=== PATIENT | female | born 1950 | race African-American/Black ===

== ENCOUNTER 2020-03-28 11:56 | Inpatient (IN) | payer MEDICARE ==
[~2020-03-28] VITALS: Ht 172.7 cm; Wt 72.1 kg
[2020-03-28 12:01] VITALS: BP 161/111
[2020-03-28 13:01] LABS: ABSOLUTE NEUTROPHILS 6.6 thou/uL (1.4-8.2); BASOPHILS 0.4 % (0.0-2.0); EOSINOPHILS 0.3 % (0.0-3.0); HEMATOCRIT 49.4 % (37.0-47.0); LYMPHOCYTES 16.7 % (24.0-44.0); MCH 27.7 pg (26.0-34.0); MCHC 32.4 g/dL (28.0-37.0); MCV 85.5 fL (80.0-100.0); MONOCYTES 4.7 % (1.0-8.0); PLATELET COUNT 252 thou/uL (150-400); POLYS 77.9 % (36.0-66.0); RBC 5.78 mil/uL (4.20-5.00); RDW 15.2 % (10.5-14.5); WBC 8.4 thou/uL (4.0-11.0)
[2020-03-28 13:08] LABS: CALCIUM 9.1 mg/dL (8.5-10.1); CREATININE 0.9 mg/dL (0.6-1.0); POTASSIUM 3.3 mmol/L (3.5-5.1)
[2020-03-28 13:14] LABS: ALBUMIN 3.9 g/dL (3.4-5.0); TOTAL BILIRUBIN 0.4 mg/dL (0.2-1.0); TOTAL PROTEIN 8.1 g/dL (6.4-8.2)
[2020-03-28] MEDS ORDERED: PRAVACHOL40 MG PO (14:35)
[2020-03-28] MEDS ORDERED: AMLODIPINE BESY10 MG PO (14:36)
--- NOTE | 2020-03-28 15:39 | EKG ---
[facility] [place] [address] ELECTROCARDIOGRAM REPORT Name: PAUL VIVEROS Room #: REG [facility]#: [id number] Admission: 03/28/20 Attend Phys: Discharge: Date of : 52 Report #: [id number] THIS REPORT FOR: cc: June Frazier K. Steven DO Couchonnal,Justo Thomas MD ~ THIS REPORT FOR: //name// [facility] ED Test Date: 2020-03-28 Test Time: 13:05:15 Pat Name: PAUL VIVEROS Department: Room: Gender: F Photograph Retoucher: : 1950 Requested By: Mitali Bacon Order Number: [id number] MD: Justo Moran Measurements Intervals [place] Rate: 95 P: 48 [place]: 132 QRS: 81 QRSD: 77 T: 52 QT: 356 QTc: 448 Interpretive Statements Sinus rhythm Multiple ventricular premature complexes Probable left atrial enlargement Borderline right axis deviation No previous ECG available for comparison Electronically Signed On 03-28-2020 15:39:22 CDT by Justo Moran [email or web address] <ELECTRONICALLY SIGNED> By: Justo Moran MD 03/28/20 1539 [id number] Justo Moran MD /ARACELY
[2020-03-28 17:19] LABS: BE(vivo) -1.4 mmol/L (-2 to +3); HCO3 22.1 mmol/L (22.0-26.0); PCO2 34.2 mmHg (35.0-45.0); PO2 62.3 mmHg (80.0-100.0); pH 7.428 (7.360-7.450); sO2 92.6 % (92.0-98.0)
[2020-03-28 17:56] LABS: TSH 0.566 uIU/mL (0.358-3.740)
[2020-03-28 21:29] VITALS: BP 127/97
[2020-03-28 21:44] VITALS: BP 116/84
[2020-03-28 22:00] VITALS: BP 125/82
[2020-03-29] VITALS (7 sets, daily range): BP systolic 106–136; BP diastolic 54–86
--- NOTE | 2020-03-29 04:00 | NUR ---
RECIEVED PT VIA GURNEY FROM ED , PT NOTED WITH PRODUCTIVE COUGH, DENIES PAIN, SAT 97 % ON RA. DATA BASE COMPLETED AND ASSESSMENT DONE. MEDICATION GIVEN AND RESP TREATMENT GIVEN. SPRAYER OPERATOR SHOWS NSR AND INTERMITTMENT BIG PVCS . PT RESTING WELL THROUGHOUT HOURLY ROUNDS.
--- NOTE | 2020-03-29 11:42 | NUR ---
08:15-AM ASSESSMENT AT THIS TIME COMPLETED. PT. IS UP IN BED WATCHING TV AT THIS TIME A0X4. SHE CONTINUES TO C/O CONSTIPATION TODAY, ENCOURAGED FLUIDS AND MOVING AROUND IN HER ROOM TODAY MUCH POSSIBLE. PT. IS ST NOW, NO BIGEMNY OBSERVED THUS FAR FOR MY SHIFT.
--- NOTE | 2020-03-29 11:44 | NUR ---
PT. C/O ANXIETY WILL GIVE XANAX FOR SUCH. ALSO COVID RESULTS ARE BACK AND ARE NEGATIVE, WILL SHARE WITH PATIENT THE RESULTS SHE HAS INQUIRED MANY TIMES ABOUT SUCH. SHE SHARED WITH ME HER MOTHER RECENTLY FROM [place] AND SHE HAS "GONE [place] EVER SINCE". DENIES BEING AROUND ANYONE SICK RECENTLY NOR ANYONE WITH COVID, HER DAUGHTER'S HAVE BEEN BRINGING HER GROCERIES AND SHE HAS BEEN SELF ISOLATING.
--- NOTE | 2020-03-29 15:00 | NUR ---
INITIAL ASSESSMENT: Received consult. SW reviewed chart and spoke with nursing and attending physician. Pt was admitted from home due to COPD exacerbation. Pt placed in Enhanced Isolation to r/o COVID-19. Pt's test is negative. Pt is afebrile and not requiring O2. Pt is on IV steroids and IV abx. Psych consult ordered to evaluate pt for anxiety/hallucinations. JUAN MIGUEL placed call into pt's room no answer. SW left voice message on pt's cell phone. Per chart, pt lives at home. PT/OT/ST ordered to evaluate pt for discharge needs. Pt's PCP is Dr. Preet Frazier. SW is following to assist as needed with discharge planning.
--- NOTE | 2020-03-29 16:11 | NUR ---
PT. TO TRANSFER TO FLOOR IS "VERY HAPPY ABOU THIS". SHE SAID SHE FEELS BETTER NOW THAT SHE HAS HAD ANXIETY MEDICATION AND ATE TODAY, SHE STILL PRETTY TIRED OVERALL". WILL CALL REPORT SOON A BED IS ASSIGNED TO US.
--- NOTE | 2020-03-29 22:00 | NUR ---
Patient progressing towards outcome goals. Oxygenation optimal on roomair. Short of air with activity. COVID negative. Orders to transfer out of unit to room 200. Report given to Serina SIMMONS.
[2020-03-30 00:06] LABS: GLYCOHEMOGLOBIN (HGB A1C) 6.2 % (4.8-5.6)
[2020-03-30 04:45] VITALS: BP 121/72
--- NOTE | 2020-03-30 05:26 | NUR ---
ASSESSMENT DOCUMENTED.PT TRANSFERRED FROM [facility].COVID NEGATIVE.PT IS A/OX3.VSS.ON RA W/O RESP DISTRESS.HAS PRODUCTIVE COUGH WITH WHITE PHLEGM.SINUS RHYTHM ON MONITOR.C/O ANXIETY THAT WAS CONTROLLED WITH XANAX.PT THINKS HIS ANXIETY IS FROM STOPPING SMOKING CIGARETTES.HAS NICOTINE PATCH.POSSIBLE DISCHARGE TODAY OR TOMORROW.WILL CONT TO MONITOR PER POC.
[2020-03-30 05:43] LABS: HEMATOCRIT 44.3 % (37.0-47.0); HEMOGLOBIN 14.1 gm/dL (12.0-15.0); MCH 27.5 pg (26.0-34.0); MCHC 31.9 g/dL (28.0-37.0); MCV 86.4 fL (80.0-100.0); RBC 5.13 mil/uL (4.20-5.00); RDW 15.2 % (10.5-14.5); WBC 17.6 thou/uL (4.0-11.0)
[2020-03-30 05:49] LABS: ANION GAP 11 mmol/L (7-16); BUN 22 mg/dL (7-18); CALCIUM 8.5 mg/dL (8.5-10.1); CHLORIDE 107 mmol/L (98-107); CHOLESTEROL 179 mg/dL (<200); CO2 23 mmol/L (21-32); GLUCOSE 156 mg/dL (74-106); HDL CHOLESTEROL 54 mg/dL (>40); LDL CHOLESTEROL 114 mg/dL (<100); MAGNESIUM 2.2 mg/dL (1.8-2.4); POTASSIUM 4.3 mmol/L (3.5-5.1); SODIUM 141 mmol/L (136-145); TC:HDL 3.3 Ratio (Not establshd); TRIGLYCERIDE 56 mg/dL (<150); VLDL 11 mg/dL (<40)
[2020-03-30 06:23] LABS: SERUM ASSESSMENT Clear
--- NOTE | 2020-03-30 10:16 | NUR ---
spoke with patient tenative dc today. Patient discussed her anxiety with kevin. She reports anxious. Discussed dc home and possible HH care. patient receptive. No preference for HH agency. referral to [facility].
[2020-03-30 10:17] VITALS: BP 107/67
[2020-03-30] MEDS ORDERED: ALPRAZOLAM 0.0.25 M1 PO (12:55)
[2020-03-30] MEDS ORDERED: PREDNISONE 5 MG5 MG PO (12:55)
[2020-03-30] MEDS ORDERED: NICOTINE1 EAC2 TRANSDERM (12:55)
[2020-03-30] MEDS ORDERED: IPRAT-ALBUT 0.5-3 ML INH (12:55)
[2020-03-30] MEDS ORDERED: LEVAQUIN 750 M750 MG PO (12:55)
--- NOTE | 2020-03-30 13:54 | NUR ---
REFERRAL FAXED TO [facility] SPOKE WITH LISETH IN INTAKE THEY CAN ACCEPT. PT DISCHARGING TODAY FAXED DC ORDERS/SUMMARY RECEIVED CONFIRMATION AND THEY WILL NOTIFY PT TIME OF VISITS.
[2020-03-31 01:06] LABS: GLYCOHEMOGLOBIN (HGB A1C) 6.2 % (4.8-5.6)
== END 2020-03-30 18:01 | disposition home health service (06) | DRG 871 ==
LOC: ER 11:56 → EROBS 16:40 → 2N 16:40 → 3W 16:40 → 2N 03-29 22:53
PROVIDERS: Nurse Practitioner; Physician Assistant; ADMIT Internal Medicine; ATTEND Internal Medicine
DX: A41.9 Sepsis, unspecified organism (principal); J18.9 Pneumonia, unspecified organism; J96.01 Acute respiratory failure with hypoxia; J44.0 Chronic obstructive pulmonary disease with (acute) lower respiratory infection; J44.1 Chronic obstructive pulmonary disease with (acute) exacerbation; I16.0 Hypertensive urgency; R91.1 Solitary pulmonary nodule; F17.210 Nicotine dependence, cigarettes, uncomplicated; I10 Essential (primary) hypertension; F41.1 Generalized anxiety disorder; E87.6 Hypokalemia; E78.5 Hyperlipidemia, unspecified; Z20.828 Contact with and (suspected) exposure to other viral communicable diseases; Z71.6 Tobacco abuse counseling; Z88.2 Allergy status to sulfonamides
CPT/HCPCS: 10081; 10879

== ENCOUNTER 2020-04-26 17:37 | Emergency (ER) | payer MEDICARE ==
[~2020-04-26] VITALS: Ht 172.7 cm; Wt 59.0 kg
[~2020-04-26 17:37] MED LIST: ALPRAZOLAM 0.0.25 M1 PO; AMLODIPINE BESY10 MG PO; IPRAT-ALBUT 0.5-3 ML INH; LEVAQUIN 750 M750 MG PO; NICOTINE1 EAC2 TRANSDERM; PRAVACHOL40 MG PO; PREDNISONE 5 MG5 MG PO
[2020-04-26 18:05] LABS: HEMATOCRIT 50.3 % (37.0-47.0); HEMOGLOBIN 16.3 gm/dL (12.0-15.0); MCHC 32.5 g/dL (28.0-37.0); MCV 86.3 fL (80.0-100.0); PLATELET COUNT 272 thou/uL (150-400); RBC 5.83 mil/uL (4.20-5.00); RDW 15.4 % (10.5-14.5); WBC 5.7 thou/uL (4.0-11.0)
[2020-04-26 18:12] LABS: ANION GAP 12 mmol/L (7-16); BUN 17 mg/dL (7-18); CALCIUM 8.9 mg/dL (8.5-10.1); CHLORIDE 100 mmol/L (98-107); CO2 25 mmol/L (21-32); CREATININE 1.1 mg/dL (0.6-1.0); GLUCOSE 125 mg/dL (74-106); SODIUM 137 mmol/L (136-145)
[2020-04-26 18:23] LABS: ALBUMIN 3.8 g/dL (3.4-5.0); SGOT 25 U/L (15-37); SGPT 37 U/L (30-65); TOTAL BILIRUBIN 0.4 mg/dL (0.2-1.0); TOTAL PROTEIN 8.4 g/dL (6.4-8.2); TROPONIN-I <0.06 ng/mL (<0.06)
[2020-04-26 18:35] LABS: ABSOLUTE NEUTROPHILS 3.9 thou/uL (1.4-8.2); PLATELET ESTIMATE NORMAL
[2020-04-26] MEDS ORDERED: XANAX 0.5 MG0.5 MG PO (22:24)
[2020-04-26 22:35] VITALS: BP 131/88
--- NOTE | 2020-04-27 08:38 | EKG ---
[facility] [place] [address] ELECTROCARDIOGRAM REPORT Name: BRUNOPAUL FERREIRA Room #: DEP [facility]#: [id number] Admission: 04/26/20 Attend Phys: Discharge: 04/26/20 Date of : 52 Report #: [id number] THIS REPORT FOR: cc: June Frazier K. Steven DO Lundgren, Craig H. 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: SHAILA : 1950 Requested By: Joni Gray Order Number: [id number] MD: Jamar Winston Measurements Intervals [place] Rate: 121 P: 59 [place]: 115 QRS: 86 QRSD: 74 T: 29 QT: 308 QTc: 437 Interpretive Statements Sinus tachycardia Nonspecific ST and T wave abnormality Compared to ECG 03/28/2020 13:05:15 Heart rate has increased Ventricular premature complex(es) no longer present Electronically Signed On 04-27-2020 8:38:08 CDT by Jamar Winston [email or web address] <ELECTRONICALLY SIGNED> By: Jamar Winston MD, [facility] 04/27/20 0838 [id number] Jamar Winston MD, [facility] /EPI
== END 2020-04-26 22:34 | disposition home or self-care (01) ==
LOC: ER 17:37
PROVIDERS: Emergency Medicine
DX: R07.89 Other chest pain (principal); R06.02 Shortness of breath; R00.0 Tachycardia, unspecified; R63.0 Anorexia; J44.9 Chronic obstructive pulmonary disease, unspecified; I10 Essential (primary) hypertension; F41.9 Anxiety disorder, unspecified; Z79.2 Long term (current) use of antibiotics; Z79.899 Other long term (current) drug therapy; Z88.2 Allergy status to sulfonamides; Z87.891 Personal history of nicotine dependence

== ENCOUNTER 2020-05-01 21:04 | Inpatient (IN) | payer MEDICARE ==
[~2020-05-01] VITALS: Ht 172.7 cm; Wt 66.2 kg
[~2020-05-01 21:04] MED LIST changes: +XANAX 0.5 MG0.5 MG PO
[2020-05-01 21:05] VITALS: BP 110/70
[2020-05-01 22:18] LABS: BASOPHILS 0.5 % (0.0-2.0); HEMATOCRIT 36.7 % (37.0-47.0); HEMOGLOBIN 11.8 gm/dL (12.0-15.0); MCH 27.9 pg (26.0-34.0); MCHC 32.2 g/dL (28.0-37.0); MCV 86.6 fL (80.0-100.0); MONOCYTES 11.4 % (1.0-8.0); PLATELET COUNT 232 thou/uL (150-400); POLYS 67.1 % (36.0-66.0); RBC 4.24 mil/uL (4.20-5.00); RDW 15.4 % (10.5-14.5)
[2020-05-01 22:21] LABS: URINE BILIRUBIN NEGATIVE (Negative); URINE BLOOD NEGATIVE (Negative); URINE CLARITY CLEAR; URINE COLOR YELLOW; URINE GLUCOSE-RANDOM* NEGATIVE (Negative); URINE KETONES NEGATIVE (Negative); URINE LEUKOCYTES-REFLEX NEGATIVE (Negative); URINE NITRITE-REFLEX NEGATIVE (Negative); URINE PROTEIN (DIPSTICK) TRACE (Negative); URINE UROBILINOGEN 0.2 E.U./dl (0.2-1.0)
[2020-05-01 22:27] LABS: ANION GAP 10 mmol/L (7-16); BUN 13 mg/dL (7-18); CALCIUM 6.1 mg/dL (8.5-10.1); CHLORIDE 108 mmol/L (98-107); CO2 22 mmol/L (21-32); CREATININE 0.6 mg/dL (0.6-1.0); GLUCOSE 84 mg/dL (74-106); POTASSIUM 3.4 mmol/L (3.5-5.1); SODIUM 140 mmol/L (136-145)
[2020-05-01 22:37] LABS: ALBUMIN 2.1 g/dL (3.4-5.0); MAGNESIUM 1.7 mg/dL (1.8-2.4); SGOT 43 U/L (15-37); SGPT 27 U/L (30-65); TOTAL BILIRUBIN 0.5 mg/dL (0.2-1.0); TOTAL PROTEIN 5.6 g/dL (6.4-8.2); TROPONIN-I <0.06 ng/mL (<0.06)
[2020-05-01 22:40] LABS: BE(vivo) -1.3 mmol/L (-2 to +3); HCO3 22.2 mmol/L (22.0-26.0); PCO2 33.6 mmHg (35.0-45.0); pH 7.438 (7.360-7.450); sO2 94.4 % (92.0-98.0)
--- NOTE | 2020-05-01 23:18 | NUR ---
TALKED WITH DAUGHTER MAGEN AND GAVE HER AN UPDATE ON PT. PT GAVE PERMISSION TO TALKED WITH DAUGHTER
[2020-05-02 05:46] LABS: CALCIUM 7.1 mg/dL (8.5-10.1); CREATININE 0.7 mg/dL (0.6-1.0); POTASSIUM 3.6 mmol/L (3.5-5.1)
--- NOTE | 2020-05-02 08:31 | EKG ---
[facility] [place] [address] ELECTROCARDIOGRAM REPORT Name: PAUL VIVEROS Room #: 170-1 ADM IN M.R.#: [id number] Admission: 05/01/20 Attend Phys: Jean Claude Fox MD Discharge: Date of : 52 Report #: [id number] THIS REPORT FOR: cc: June Frazier K. Steven DO Lundgren, Craig H. MD [facility] ~ THIS REPORT FOR: //name// [facility] ED Test Date: 2020-05-01 Test Time: 21:52:20 Pat Name: PAUL VIVEROS Department: Room: [facility] Gender: F Annealing Torch Operator: LUDWIN : 1950 Requested By: Paul Evans Order Number: [id number] MD: Jamar Winston Measurements Intervals [place] Rate: 101 P: 25 [place]: 121 QRS: 83 QRSD: 80 T: 30 QT: 353 QTc: 458 Interpretive Statements Sinus tachycardia Nonspecific T wave abnormality Compared to ECG 04/26/2020 17:41:46 No gross differences Electronically Signed On 05-02-2020 8:31:22 CDT by Jamar Winston [email or web address] <ELECTRONICALLY SIGNED> By: Jamar Winston MD, [facility] 05/02/20 0831 51 51 Jamar Winston MD, [facility] /EPI
[2020-05-02 10:10] VITALS: BP 107/72
[2020-05-02 11:06] VITALS: BP 100/68
[2020-05-02 11:40] VITALS: BP 111/81
[2020-05-02 16:34] VITALS: BP 102/71
--- NOTE | 2020-05-02 16:35 | NUR ---
PT ADMITTED FROM HOME. REPORTS SHE HAS NOT FELT WELL X 2 WEEKS...SOA...ON RA AT HOME BUT CURRENTLY ON 4.5L WITH 93# SATS..
[2020-05-02 21:42] VITALS: BP 98/51
[2020-05-02 23:59] VITALS: BP 128/75
[2020-05-03 06:29] VITALS: BP 126/70
[2020-05-03 07:19] VITALS: BP 118/80
[2020-05-03 10:57] VITALS: BP 119/81
--- NOTE | 2020-05-03 15:08 | NUR ---
INITIAL ASSESSMENT: Received consult. JUAN MIGUEL reviewed chart and spoke with nursing and attending physician. Pt was admitted from home due to COPD/Hypoxia. Pt placed in Enhanced Isolation due to COVID-19. Pt's test is positive. Pt is afebrile and on 5L of O2. SW spoke with pt via phone. Introduced role of SW. Pt is alert/orientated x 4. Pt reports she lives at home alone. Prior to admission, pt was independent with ADLs. Pt does not use any DME for ambulation. 5 steps to enter the home. No steps inside. Pt reports she is currently on service with [facility] . Pt PCP is Dr. Preet Frazier. Pt's dtrs are supportive and involved in her care. JUAN MIGUEL spoke with intake at to notify of pt's admission and COVID positive status. investigator fraud to fax clinical info/COVID test results to for review. Therapy evals requested. JUAN MIGUEL is following to assist as needed with discharge planning.
[2020-05-03 16:06] VITALS: BP 119/71
[2020-05-03 19:18] VITALS: BP 127/80
[2020-05-03 22:20] VITALS: BP 114/70
[2020-05-04 03:55] VITALS: BP 116/76
[2020-05-04 06:17] LABS: ABSOLUTE NEUTROPHILS 11.2 thou/uL (1.4-8.2); BASOPHILS 0.1 % (0.0-2.0); HEMOGLOBIN 11.6 gm/dL (12.0-15.0); LYMPHOCYTES 5.5 % (24.0-44.0); MCH 27.6 pg (26.0-34.0); MCHC 32.3 g/dL (28.0-37.0); MCV 85.5 fL (80.0-100.0); MONOCYTES 5.1 % (1.0-8.0); POLYS 89.3 % (36.0-66.0); RBC 4.21 mil/uL (4.20-5.00); RDW 14.9 % (10.5-14.5); WBC 12.5 thou/uL (4.0-11.0)
[2020-05-04 06:25] LABS: PLATELET COUNT 345 thou/uL (150-400)
[2020-05-04 06:31] LABS: ALBUMIN 2.4 g/dL (3.4-5.0); DIRECT BILIRUBIN < 0.1 mg/dL (<0.1-0.2); SGOT 36 U/L (15-37); SGPT 48 U/L (30-65); TOTAL BILIRUBIN 0.5 mg/dL (0.2-1.0); TOTAL PROTEIN 6.2 g/dL (6.4-8.2)
[2020-05-04 07:26] VITALS: BP 125/70
[2020-05-04 14:58] VITALS: BP 117/71
--- NOTE | 2020-05-04 16:14 | NUR ---
SW reviewed chart and spoke with nursing and attending physician. Pt is in Enhanced Isolation duye to COVID-19. Pt is afebrile and requiring 6L of O@. Pt is on IV abx and IV steroids. Pt had plasma yesterday and is completing course of Remdesivir. No weekend discharge planned. Will need therapy evals. Pt was not on O2 prior to admission. JUAN MIGUEL is following to assist as needed with discharge planning.
--- NOTE | 2020-05-04 18:39 | NUR ---
PATIENT CONT TO IMPROVE AT THIS TIME. SHE DOES NOT SEEM TO BE IN PAIN OR DISTRESS AT THIS TIME. EARLIER SHE STATED SHE HAD ANXIETY AND WILL NEED XANAX WHICH WAS ADMINISTERED. SHE IS ALERT ORIENTED X4. UP TO BEDSIDE COMMODE. WILL CONT WITH PLAN OF CARE.
[2020-05-04 19:55] VITALS: BP 125/86
[2020-05-05 03:44] VITALS: BP 130/79
--- NOTE | 2020-05-05 05:38 | NUR ---
continues on oxygen. patient reports that she is comfortable with her breathing. heart rate more under controlled this morning in the 70's.
[2020-05-05 06:08] LABS: ALBUMIN 2.4 g/dL (3.4-5.0); DIRECT BILIRUBIN 0.2 mg/dL (<0.1-0.2); TOTAL BILIRUBIN 0.6 mg/dL (0.2-1.0); TOTAL PROTEIN 5.8 g/dL (6.4-8.2)
[2020-05-05 07:59] VITALS: BP 117/113
[2020-05-05 11:04] VITALS: BP 119/71
[2020-05-05 14:53] VITALS: BP 128/78
[2020-05-05 20:17] VITALS: BP 127/80
[2020-05-05 23:29] VITALS: BP 123/66
--- NOTE | 2020-05-06 03:47 | NUR ---
Patient making slow progress towards outcome goals. Oxygenation optimal with 6L/NC sats mid 90's. Patient has a lot of anxiety, states she feels like she is not getting enough air althought sats are normal. She quit smoking recently, was smoking 2 packs/day. One time order for Vistaril given with some relief. Order also received for Nicotine patch. Vital signs and rhythm stable. Up to BSC independently. Gait steady.
[2020-05-06 04:37] VITALS: BP 129/76
[2020-05-06 06:18] LABS: ALBUMIN 2.4 g/dL (3.4-5.0); DIRECT BILIRUBIN 0.1 mg/dL (<0.1-0.2); TOTAL BILIRUBIN 0.7 mg/dL (0.2-1.0); TOTAL PROTEIN 6.2 g/dL (6.4-8.2)
[2020-05-06 07:00] VITALS: BP 127/81
[2020-05-06 10:31] LABS: HEMATOCRIT 40.8 % (37.0-47.0); HEMOGLOBIN 13.3 gm/dL (12.0-15.0); MCH 28.1 pg (26.0-34.0); MCHC 32.6 g/dL (28.0-37.0); MCV 86.1 fL (80.0-100.0); RBC 4.74 mil/uL (4.20-5.00); WBC 14.6 thou/uL (4.0-11.0)
[2020-05-06 10:44] LABS: ALBUMIN 2.5 g/dL (3.4-5.0); CALCIUM 7.4 mg/dL (8.5-10.1); CREATININE 0.8 mg/dL (0.6-1.0); POTASSIUM 3.6 mmol/L (3.5-5.1); TOTAL BILIRUBIN 0.7 mg/dL (0.2-1.0); TOTAL PROTEIN 5.9 g/dL (6.4-8.2)
--- NOTE | 2020-05-06 18:39 | NUR ---
ASSUMED PATIENT CARE AT 0700. ANXIOUS. TITRATED TO 5L. SOB WITH EXERTION. PROGRESSING TOWARDS POC GOALS.
[2020-05-06 20:29] VITALS: BP 110/66
--- NOTE | 2020-05-07 04:12 | NUR ---
Patient making slow progress towards outcome goals. Vital signs and rhythm stable. Denies pain. Encouraged to take Xanax with some relief. Oxygenation optimal with 5L/NC, still with periods of shortness of breath with relief after breathing treatment. Up to BSC without difficulty. Calls out appropriately for needs.
[2020-05-07 04:24] VITALS: BP 136/67
[2020-05-07 08:11] VITALS: BP 134/86
[2020-05-07 11:18] VITALS: BP 111/80
--- NOTE | 2020-05-07 14:53 | NUR ---
JUAN MIGUEL reviewed chart and spoke with nursing and attending physician. Pt is in Enhanced Isolation due to COVID-19. Pt is afebrile and requiring 5L of O2. Pt is on IV abx and IV steroids. Pt finished her course of Remdesivir yesterday. JUAN MIGUEL requested therapy evals to be ordered. Pt was admitted from home and was on service with [facility] . Pt did not require O2 prior to admission. JUAN MIGUEL placed call to pt's room. No answer. JUAN MIGUEL is following to assist as needed with discharge planning.
[2020-05-07 16:17] VITALS: BP 108/62
--- NOTE | 2020-05-07 18:38 | NUR ---
PT IS A&OX3, PT IS CONTINUING IV ABX AND O2 5L/MIN/NC, PT'S VS ARE STABLE, BUT PT HAS SOB WITH ACTIVITIES, PT IS ON ISOLATION FOR POSITIVE COVID.
[2020-05-07 20:02] VITALS: BP 115/74
--- NOTE | 2020-05-07 22:08 | NUR ---
PT RESTING IN BED WATCHING TV AND TALKING WITH STAFF. PT SOB WITH EXERTION. PT HAS BSC AND CALLS FOR ASSIST. IV INTACT. OXYGEN NC INTACT. PT REQUESTED PRN FOR ANXIETY WHEN IT IS DUE. PT COMPLIANT WITH MEDS. PT REQUESTED INFORMATION RE NAME AND PURPOSE OF EACH MEDICATION. PT PROVIDED SNACK. COUGH LUNGS WITH WHEEZES.
[2020-05-08 05:05] VITALS: BP 125/74
--- NOTE | 2020-05-08 06:26 | NUR ---
PT REPORTED POOR SLEEP BUT WAS OBSERVED TO BE ASLEEP THROUGHOUT THE NIGHT.
[2020-05-08 07:41] VITALS: BP 117/68
--- NOTE | 2020-05-08 11:14 | NUR ---
Nutrition: pt seen for LOS. Admitted with COVID 19. Attempted to phone pt but no answer. Intake records show pt eating 60-75% of meals on heart healthy diet. No recent weight loss per [facility]. 05/07 BM. Mg 1.7 low on admit, may consider re-checking. A1C 6.2 in March with no hx of DM. Does have hx of COPD and steroid use however. No accuchecks currently being taken. Consider add carb controlled diet. Consider low nutrition risk otherwise.
[2020-05-08 14:59] VITALS: BP 123/77
--- NOTE | 2020-05-08 15:10 | NUR ---
JUAN MIGUEL reviewed chart and spoke with nursing and attending physician. Pt is in Enhanced Isolation due to COVID-19. Pt is afebrile and on 5L of O2. Pt is on IV abx and IV steroids. SW requested therapy evals to assist with recommendtions for discharge. Pt was not on O2 prior to admission. JUAN MIGUEL placed call to pt's room. No answer. JUAN MIGUEL is following to assist as needed with discharge planning.
--- NOTE | 2020-05-08 18:37 | NUR ---
assumed patient care at 0700. ambulated in room. titrated 02 to 3l tolerated well. progressing towards poc golas.
[2020-05-08 20:30] VITALS: BP 113/74
--- NOTE | 2020-05-09 02:38 | NUR ---
PROGRESS PT A/O X4, UP AD ERENDIRA TO BSC, ABLE TO AMBULATE TO BATHROOM BUT CONCERNED THAT HER O2 SATS DROPPED TO 88 ON ROOM AIR. HAS PULSE OXIMETER AT BEDSIDE AND MONITORS SATS NEEDED. DOESN'T APPEAR TO HAVE ANY SOA RESPIRATIONS QUIET AND EAST LEFT LUNG BASE WITH SOME CRACKLES AND WHEEZES, RIGHT LUNG CLEAR IN ALL LOBES EXCEPT SLIGHT WHEEZING NOTED IN BASE THAT CLEARS WITH COUGH. TAKING RT TREATMENTS, GUAFENSIN HELPING TO EXPECTORATE SECRETIONS. ANXIOUS ABOUT LEVEL OF OXYGEN PER DAY SHIFT TITRATED TO 3 LITERS SATS AT 94 TO 95%. tELE INTACT READING SR WITH RATES IN THE 50'S TO 70'S.
[2020-05-09 04:33] VITALS: BP 104/60
[2020-05-09 09:00] VITALS: BP 115/82
--- NOTE | 2020-05-09 10:50 | NUR ---
JUAN MIGUEL reviewed chart and spoke with nursing and attending physician. Pt is in Enhanced Isolation due to COVID-19. Pt is afebrile and on 3L of O2. Pt is on IV steroids. Therapy ordered to evaluate pt. JUAN MIGUEL placed call into pt's room to discuss discharge plan. No answer. JUAN MIGUEL spoke with pt's dtr, Kristen, via phone to discuss discharge plan: post-acute placement v. Home with HH. Pt's dtr states pt has expressed concern with going home, as she is still having trouble breathing. SW discussed that home O2 can be arranged at home v. placement in a SNF for rehab and medical mgmt. JUAN MIGUEL reviewed in-network SNF list with pt's dtr. [facility] is most likely the only facility accepting new COVID positive pts at this time. JUAN MIGUEL checked with [facility], who is not accepting new COVID units. SW is awaiting call back for [facility] to confirm. Awaiting therapy evals. Pt's dtrs will discuss plan with pt. Pt's family thought pt had a repeat COVID test on 05/06. JUAN MIGUEL discussed with attending physician and requested repeat COVID test. JUAN MGIUEL is following to assist as needed with discharge planning.
[2020-05-09 12:00] VITALS: BP 119/78
[2020-05-09 16:00] VITALS: BP 115/70
--- NOTE | 2020-05-09 19:09 | NUR ---
PATIENT IS PLEASANT WITH CARE. DOES NOT SEEM TO BE IN PAIN OR DISTRESS.DENIES PAIN. CONT TO PREPARE TO GO HOME TOMORROW.
--- NOTE | 2020-05-09 20:01 | NUR ---
Pt changed back to nebulizer treatments she prefers nebulizer over inhaler, 89% on 3L increased her to 4L 94%, lung sounds wheezes.
[2020-05-09 20:59] VITALS: BP 97/74
--- NOTE | 2020-05-10 03:27 | NUR ---
VSS-AFEBRILE. SIGNIFICANT SHORTNESS OF AIR WITH EXERTION, EVEN TALKING. REMAINS ON 4LNC, DOES NOT WEAR ANY O2 AT HOME. CONGESTED COUGH, MODERATE AMOUNTS OF THICK, BEIGE SPUTUM. ALERT AND ORIENTED X 4, LUNGS COURSE AND TIGHT THROUGH ALL LUNG DE LEON BILATERALLY, BREATHING TREATMENTS GIVE PARTIAL RELIEF OF TIGHTNESS. OOB AD ERENDIRA TO USE BSC, NO DIFFICULTY VOIDING. NO BM THIS SHIFT. C/O GENERALIZED ALL OVER BODY ACHES, DECLINED ANY PAIN MEDICATION. CALLS APPROPRIATELY FOR ANY NEEDED ASSISTANCE.
[2020-05-10 05:21] VITALS: BP 114/77
[2020-05-10 08:23] VITALS: BP 96/63
[2020-05-10 11:28] VITALS: BP 102/72
--- NOTE | 2020-05-10 12:59 | NUR ---
JUAN MIGUEL reviewed chart and spoke with nursing and attending physician. Pt is in Enhanced Isolation due to COVID-19. Pt's repeat test ordered yesterday is pending. Pt is afebrile and on 4L of O2. Pt is on IV steroids. Discharge home with [facility] is anticipated for tomorrow. JUAN MIGUEL notified Janiya quezada at . JUAN MIGUEL also notified [facility] liaison. Pt will need rest/exercise oximetry ordered prior to discharge to determine pt's home O2 needs. JUAN MIGUEL notified attending physician. JUAN MIGUEL placed call to pt's room. No answer. JUAN MIGUEL spoke with pt's dtr, Kristen, via phone to provide update and discuss discharge plan. Kristen is aware and agreeable with plan. Family will be able to provide transportation when pt is discharged. JUAN MIGUEL is following to assist as needed with discharge planning.
[2020-05-10 15:13] VITALS: BP 98/63
[2020-05-10 20:22] VITALS: BP 103/64
--- NOTE | 2020-05-11 03:59 | NUR ---
ASSUMED CARE AT 1900. PT DENIES PAIN, BUT C/O SORE/HOARSE THROAT; GAVE COUGH DROP. SATTING WELL ON 4L O2. LUNGS COARSE LOWER LEFT; HAS BEEN SR-ST OVERNIGHT. NO OTHER CONCERNS, PLAN FOR D/C HOME WITH HH TODAY.
[2020-05-11 04:15] VITALS: BP 110/74
[2020-05-11 06:07] LABS: CALCIUM 8.1 mg/dL (8.5-10.1); CREATININE 0.7 mg/dL (0.6-1.0); POTASSIUM 3.8 mmol/L (3.5-5.1)
[2020-05-11 07:10] VITALS: BP 110/67
[2020-05-11 11:29] VITALS: BP 91/60
[2020-05-11 11:51] VITALS: BP 91/60
--- NOTE | 2020-05-11 11:53 | NUR ---
DISCHARGE NOTE: JUAN MIGUEL reviewed chart and spoke with nursing and attending physicaian. Pt remains in Enhanced Isolation due to COVID-19. Pt's repeat test on 05/09 is positive. Pt is afebrile and on 3L of O2. Pt is medically stable for discharge home today with [facility] . Pt will need rest/exercise oximetry to determine home O2 needs. JUAN MIGUEL updated HH and [facility] liaison. [facility] is able to provide pt with home O2, if needed. Contact info for HH placed in pt's discharge summary. SW is following to finalize discharge.
[2020-05-11] MEDS ORDERED: PEPCID20 MG PO (12:58)
[2020-05-11] MEDS ORDERED: PULMICORT0.5 MG/21 INH (12:58)
[2020-05-11] MEDS ORDERED: CEFDINIR300 MG PO (12:58)
[2020-05-11] MEDS ORDERED: PREDNISONE 20 M20 MG PO (12:58)
[2020-05-11 13:20] VITALS: BP 91/60
--- NOTE | 2020-05-11 17:00 | NUR ---
PATIENT DISCHARGED AT THIS TIME TO HOME. BP AT TIME OF DISCHARGE WAS GOOD AT 125/70. SHE DENIED ANY PAIN. WHEELED HER TO DAUGHTER CAR AT THE ER. SHE HAD OXYGEN. WILL CONT WITH PLAN OF CARE.
== END 2020-05-11 17:00 | disposition home health service (06) | DRG 177 ==
LOC: ER 21:04 → EROBS 23:19 → 3W 23:19
PROVIDERS: Emergency Medicine; Hospitalist; Nurse Practitioner Family; ADMIT Hospitalist; ATTEND Hospitalist
PROC: XW033E5 Introduction of Remdesivir Anti-infective into Peripheral Vein, Percutaneous Approach, New Technology Group 5 (ICD-10-PCS; principal; 2020-05-02)
PROC: XW033E5 Introduction of Remdesivir Anti-infective into Peripheral Vein, Percutaneous Approach, New Technology Group 5 (ICD-10-PCS; 2020-05-03)
PROC: XW13325 Transfusion of Convalescent Plasma (Nonautologous) into Peripheral Vein, Percutaneous Approach, New Technology Group 5 (ICD-10-PCS; 2020-05-04)
DX: U07.1 COVID-19 (principal); J96.21 Acute and chronic respiratory failure with hypoxia; J12.89 Other viral pneumonia; J44.1 Chronic obstructive pulmonary disease with (acute) exacerbation; J44.0 Chronic obstructive pulmonary disease with (acute) lower respiratory infection; I10 Essential (primary) hypertension; F41.9 Anxiety disorder, unspecified; E78.5 Hyperlipidemia, unspecified; E83.51 Hypocalcemia; R91.1 Solitary pulmonary nodule; J45.909 Unspecified asthma, uncomplicated; Z88.2 Allergy status to sulfonamides; Z87.891 Personal history of nicotine dependence; Z79.899 Other long term (current) drug therapy
CPT/HCPCS: 10879; 23012